=== PATIENT | female | born 1975 | race Caucasian/White ===

== ENCOUNTER → 2018-08-22 | Outpatient (CLI) | payer OTHER ==
[2018-08-22 13:20] LABS: BASO # 0.1 10^3/uL (0.0-0.2); BASO % 0.5 % (0.0-1.0); EOS % 0.3 % (0.0-3.0); HEMATOCRIT 40.8 % (36.0-47.0); HEMOGLOBIN 13.1 g/dl (12.0-15.5); LYMPH # 2.9 10^3/uL (1.5-4.5); LYMPH % 20.7 % (24.0-44.0); MEAN CORPUSCULAR HEMOGLOBIN 28.3 pg (27.0-33.0); MEAN CORPUSCULAR HGB CONC 32.1 g/dl (32.0-36.5); MEAN CORPUSCULAR VOLUME 88.1 fl (80.0-96.0); MONO # 0.6 10^3/uL (0.0-0.8); MONO % 4.2 % (0.0-5.0); NEUTROPHILS # 10.5 10^3/uL (1.8-7.7); NEUTROPHILS % 73.8 % (36.0-66.0); PLATELET COUNT, AUTOMATED 387 10^3/uL (150-450); RED BLOOD COUNT 4.63 10^6/uL (4.00-5.40); WHITE BLOOD COUNT 14.2 10^3/uL (4.0-10.0)
[2018-08-22 13:52] LABS: FREE T4 1.06 NG/DL (0.76-1.46); PROLACTIN 4.3 NG/ML; THYROID STIMULATING HORMONE 1.01 uIU/ML (0.358-3.740)
[2018-08-24 11:20] LABS: CA 125 5.6 U/ML (<30.2)
[2018-08-24 11:21] LABS: CA19-9 TUMOR MARKER,CARBOHYDRA 10.2 U/ML (<35.0)
== END ==
LOC: M SMT 11:48
PROVIDERS: ATTEND Nurse Practitioner Women's Health
DX: N92.0 Excessive and frequent menstruation with regular cycle (principal)

== ENCOUNTER → 2018-08-28 | Outpatient (CLI) | payer OTHER ==
--- NOTE | 2018-08-28 16:23 | REPMRS ---
Patient History The patient states she had a clinical breast exam in August 2018. Family history of ovarian cancer at age 55 in mother, colorectal cancer in paternal aunt, colorectal cancer at age 80 in maternal grandmother, endometrial cancer in maternal grandmother, colorectal cancer at age 50 in maternal aunt. Taking hormonal contraceptives for 22 years. Digital Mammo Screening Bilat: August 28, 2018 - Exam #: [id number] Bilateral CC and MLO view(s) were taken. Technologist: Janelle Sy, Technologist Prior study comparison: July 09, 2014, digital woman screen mammo, performed at [facility]. FINDINGS: There are scattered fibroglandular densities. There has been no change in the appearance of the mammogram from the prior studies. There is a mild amount of scattered fibroglandular density which is fairly symmetric. There is no interval development of dominant mass, architectural distortion, or clustered microcalcification suggestive of malignancy. 3-D tomosynthesis shows no additional findings. Assessment: BI-RADS/ACR category 1 mammogram. Negative Mammogram. Recommendation Routine screening mammogram of both breasts in 1 year (for women over age 40). This patient's Lifetime Breast Cancer RIsk is estimated at 13.7 %. This mammogram was interpreted with the aid of an FDA-approved computer-aided dectection system. Electronically Signed By: Uziel Velez MD 08/28/18 [id number]
--- NOTE | 2018-08-29 05:38 | REP ---
Clinical: Menometrorrhagia . Technique: Transabdominal pelvic ultrasound followed by transvaginal examination for better evaluation of the endometrium and adnexa with color Doppler evaluation of the ovaries. Comparison: 07/09/2014 Findings: Bladder is unremarkable and measures 10.4 x 13.5 x 6.6 cm . Enlarged anteverted myomatous uterus measures 10.5 x 6.4 x 7.2 cm. The endometrial complex measures 7.0 mm thickness. Left anterior fibroid measures 2.8 cm maximal diameter, midline submucosal fibroid with mass effect on the endometrial complex measures 1.7 cm maximal diameter, right anterior fibroid measures 2.1 cm maximal diameter, and right anterior fibroid measures 1.4 cm maximal diameter. The patient gives history of a right salpingo-oophorectomy and possible partial left salpingectomy. Left ovary measures 3.8 x 2.7 x 3.4 cm with 2.9 cm cyst. Left RI = 0.58. No evidence for torsion. Impression: 1. Enlarged heterogeneous myomatous uterus demonstrating mass effect on the endometrial complex. The myomatous changes may be slightly increased when compared to prior examination. 2. Findings to suggest prior right salpingo-oophorectomy and partial left salpingectomy. 3. Left ovary includes 2.9 cm cyst and no evidence for torsion. Electronically Signed by Devon Copeland MD 08/29/2018 05:29 A
== END ==
LOC: M RAD 13:25
PROVIDERS: ATTEND Nurse Practitioner Women's Health
DX: Z12.31 Encounter for screening mammogram for malignant neoplasm of breast (principal); N92.0 Excessive and frequent menstruation with regular cycle; N85.2 Hypertrophy of uterus; N83.202 Unspecified ovarian cyst, left side; Z79.3 Long term (current) use of hormonal contraceptives; Z80.41 Family history of malignant neoplasm of ovary

== ENCOUNTER 2018-11-01 09:47 | Day surgery (SDC) | payer OTHER ==
[~2018-11-01] VITALS: Ht 160 cm; Wt 108.5 kg
[2018-11-01] VITALS (10 sets, daily range): BP systolic 115–151; BP diastolic 69–85; O2SAT 95–98
[~2018-11-01 09:47] MED LIST: ALLE24TA7 PO; CVS2500C PO; D-101000 PO; DEBL1TAB PO; FLON1SPR; LIDOCAINE 2% INJ 100 MG/5 ML SDV (FOR ANES.) As Ordered ONE; LR 1,000 ML IV SCH; MIDAZOLAM INJ 2 MG/2 ML VIAL (J2250) As Ordered ONE; ONDANSETRON 4MG/2ML VIAL (J2405) As Ordered ONE; PROPOFOL 200 MG/20 ML VIAL As Ordered ONE; ROCURONIUM BROMIDE 50 MG/5 ML VIAL As Ordered ONE; VITA500T PO; dexameTHASONE 4 MG/ML 1ML VIAL (J1100) As Ordered ONE; fentaNYL 250 MCG/5 ML INJECTION (J3010) As Ordered ONE
[2018-11-01 10:16] LABS: HEMATOCRIT 39.8 % (36.0-47.0); MEAN CORPUSCULAR HEMOGLOBIN 28.6 pg (27.0-33.0); MEAN CORPUSCULAR HGB CONC 32.7 g/dl (32.0-36.5); MEAN CORPUSCULAR VOLUME 87.7 fl (80.0-96.0); PLATELET COUNT, AUTOMATED 356 10^3/uL (150-450); RED BLOOD COUNT 4.54 10^6/uL (4.00-5.40); WHITE BLOOD COUNT 8.8 10^3/uL (4.0-10.0)
[2018-11-01] MEDS ORDERED: KETOROLAC 60 MG/2 ML VIAL (J1885) As Ordered ONE (13:24)
[2018-11-01] MEDS ORDERED: ROCURONIUM BROMIDE 50 MG/5 ML VIAL As Ordered ONE (13:37)
[2018-11-01] MEDS ORDERED: MORPHINE 1MG/ML IN 0.9% NACL 100ML IV BAG As Ordered ONE (15:42)
[2018-11-01] MEDS ORDERED: NALBUPHINE HCL 10 MG/ML AMP (J2300) IV PRN (15:45)
[2018-11-01] MEDS ORDERED: diphenhydrAMINE INJ 50MG/ML VIAL (J1200) IV PRN (15:45)
[2018-11-01] MEDS ORDERED: ONDANSETRON 4MG/2ML VIAL (J2405) IV PRN (15:45)
[2018-11-01] MEDS ORDERED: EPIDURAL/PCA KEYS XX PRN (15:45)
[2018-11-01] MEDS ORDERED: MORPHINE 10 MG/ML 1ML VIAL (J2270) IV PRN (15:45)
[2018-11-01] MEDS ORDERED: NALOXONE INJ 0.4 MG/1 ML VIAL (J2310) IV PRN (15:45)
[2018-11-01] MEDS ORDERED: LR 1,000 ML IV SCH (15:45)
[2018-11-01] MEDS ORDERED: PERCOCET 5MG/325MG TAB PO PRN (15:45)
[2018-11-01] MEDS ORDERED: MORPHINE 1MG/ML IN 0.9% NACL 100ML IV BAG IV PRN (15:45)
[2018-11-01] MEDS ORDERED: fentaNYL 100 MCG/2 ML INJECTION (J3010) As Ordered ONE (16:04)
[2018-11-01] MEDS: fentaNYL 100 MCG/2 ML INJECTION (J3010) IV PRN ×4 (16:07→16:25)
[2018-11-01] MEDS: LR 1,000 ML IV SCH (16:15)
[2018-11-01] MEDS ORDERED: IBUPROFEN 600 MG TAB PO PRN (16:15)
[2018-11-02] VITALS: BP 157/84; O2SAT 96
[2018-11-02] MEDS: LR 1,000 ML IV SCH
[2018-11-02 04:00] VITALS: BP 132/78; O2SAT 97
[2018-11-02] MEDS ORDERED: NORCO, ANEXSIA 5/325MG TABLET (HYDROcodone/ACETAMINOPHEN) PO PRN (06:00)
[2018-11-02 07:59] LABS: HEMATOCRIT 34.2 % (36.0-47.0); HEMOGLOBIN 11.2 g/dl (12.0-15.5); MEAN CORPUSCULAR HGB CONC 32.7 g/dl (32.0-36.5); MEAN CORPUSCULAR VOLUME 88.6 fl (80.0-96.0); PLATELET COUNT, AUTOMATED 313 10^3/uL (150-450); RED BLOOD COUNT 3.86 10^6/uL (4.00-5.40); WHITE BLOOD COUNT 14.9 10^3/uL (4.0-10.0)
[2018-11-02 08:00] VITALS: BP 128/77
--- NOTE | 2018-11-02 08:47 | RO ---
DATE OF PROCEDURE: 11/01/2018 PREOPERATIVE DIAGNOSIS/INDICATION FOR SURGERY: Pain, bleeding, fibroids, adhesions. POSTOPERATIVE DIAGNOSIS: Pain, bleeding, fibroids, adhesions. PROCEDURE: Robotic assisted hysterectomy with left salpingo-oophorectomy. The patient had previous right salpingo-oophorectomy. She also had lysis of adhesions today. SURGEON: Dr. Tiffanie Beckford INNERSOLE MAKER: Alisia Marin ANESTHESIA: General endotracheal anesthesia. BRIEF DESCRIPTION OF PROCEDURE AND FINDINGS: Bhumika was brought to the operating room where sufficient general endotracheal anesthesia was induced. She was prepped, draped and positioned in the usual sterile fashion with the Wyman ability to backfill placed and the uterine manipulator placed after the uterus had been sounded to 12. We then turned our attention to the abdomen. A transverse semilunar incision was made below the umbilicus. Sharp and blunt dissection were continued through the subcutaneous tissues to the level of the rectus fascia, which was elevated with Brie clamps, transversely incised and secured in placed with #0 Vicryl retention sutures. Then, the peritoneum entered under direct visualization in an open laparoscopic technique. Th Bui cannula was then placed and CO2 insufflation then begun. After adequate CO2 insufflation, the camera was placed and the pelvic and abdominal cavity visualized. There were normal shiny peritoneal surfaces throughout. There was no excrescences, ascites nor exudate, but there were multiple adhesions. Some adhesions of just omentum at the umbilicus, which did not appear to have a risk of volvulus, so they were left alone especially since they sort of tie into the ligament to the liver. We also noted multiple adhesions of the bowel around the left adnexa and of the bowel to the back of the uterus and of the bladder to the anterior lower uterine segment. Two left-side, one right-side port were placed and the robot was docked with the patient in Trendelenburg. I moved to the console for the primary portion of the robotic port. Working from the robotic console I began the dissection of the adhesions, brought away the bowel from the uterus down from the left adnexa so that we could isolate the left infundibulopelvic ligament and this was carefully cauterized and transected using the LigaSure device. We carefully worked our way through the left side to the round ligament, which was also cauterized and transected. Then, we used cold scissors to carefully dissect the broad ligament on the left, which we had also used cold scissors on the adhesions. We then carefully dissected and brought down to isolate the uterine and carefully dissect across the lower anterior uterine segment. There were multiple adhesions there, so we backfilled the bladder to identify where the bladder was located more carefully and then carefully dissected through the adhesions using pressure upon the uterine manipulator as well as pressure on the adhesions. I created a bladder flap connecting to the dissection in the left broad ligament. We then turned our attention to the patient's right side. As expected, there is a small stump of right tube and no ovary on the right side. The stump of tube went with the uterus of course. We carefully dissected through the round ligament and the broad ligament carefully dissecting through multiple adhesions on this side to then join the broad ligament dissection anteriorly to the dissection we had already done and then cauterized the uterine vasculature on the right but not yet transecting it. We went back and cauterized the uterine vasculature on the left again and then carefully transected this and began the dissection of the colpotomy at the cuff with the uterine manipulator carefully dissecting around the manipulator cup working first anteriorly and then across the left and across the back. We were able to elevate this uterus enough to manipulate it for that and then across the vascular supply on the right. The uterus was then carefully and with some effort delivered through the vaginal cuff into the vagina. The vaginal cuff was then closed with running lock stitch of V-Loc suture. We did have a bleeding vessel on the right side, which we over sewed with a suture and had direct visualization and could see that we had good control of this arterial bleed, and we were able to continue and close the rest of the cuff being careful of course to get vaginal tissues with this closure. There was no evidence of injury to ureter, bowel or bladder. We did place some Surgicel over the cuff after irrigating and observing for a while. There was no active bleeding but she had, had some difficulty healing in the past, so we went ahead and placed the Surgicel and then ended the procedure by letting the CO2 escape, removing the instruments and removing her from Trendelenburg and closing the four abdominal wounds at the umbilicus. The larger one was closed at fascial level with a #0 Vicryl retention suture, #3-0 Vicryl in a subcuticular stitch was used at all four wounds at the skin layer and dry sterile dressings then applied. Estimated blood loss for the procedure was about 100 mL. Fluid replacement was crystalloid. Complications: None. Condition and Disposition: Bhumika tolerated the procedure well and was recovering in the recovery room in good condition
[2018-11-02] MEDS ORDERED: **UNRESOLVED NON-FORMULARY MED ORDER XX SCH (09:00)
[2018-11-02] MEDS ORDERED: FLUTICASONE PROP 0.05% NASAL SPRAY 16 GM (FLONASE) NARES SCH (09:00)
[2018-11-02] MEDS ORDERED: CYANOCOBALAMIN 500 MCG TAB PO SCH (09:00)
[2018-11-02] MEDS ORDERED: VITAMIN D 1,000 INTERNATIONAL UNITS TABLET PO SCH (09:00)
[2018-11-02] MEDS ORDERED: ASCORBIC ACID 500 MG TAB PO SCH (09:00)
[2018-11-02] MEDS ORDERED: NORC1TAB7 PO (09:00)
[2018-11-02] MEDS ORDERED: ADVI200T PO (09:00)
== END 2018-11-02 10:30 | disposition home or self-care (01) ==
LOC: M SDC 09:47 → M PED 17:15 → M SDC 11-02 10:30
PROVIDERS: ATTEND Obstetrics & Gynecology
DX: N93.9 Abnormal uterine and vaginal bleeding, unspecified (principal); D25.9 Leiomyoma of uterus, unspecified; N73.6 Female pelvic peritoneal adhesions (postinfective); N72 Inflammatory disease of cervix uteri; E66.9 Obesity, unspecified; Z68.41 Body mass index [BMI] 40.0-44.9, adult; Z98.51 Tubal ligation status

== ENCOUNTER → 2020-07-02 | Outpatient (CLI) | payer OTHER ==
[~2020-07-02] MED LIST changes: +ADVI200T PO; -LIDOCAINE 2% INJ 100 MG/5 ML SDV (FOR ANES.) As Ordered ONE; -LR 1,000 ML IV SCH; -MIDAZOLAM INJ 2 MG/2 ML VIAL (J2250) As Ordered ONE; +NORC1TAB7 PO; -ONDANSETRON 4MG/2ML VIAL (J2405) As Ordered ONE; -PROPOFOL 200 MG/20 ML VIAL As Ordered ONE; -ROCURONIUM BROMIDE 50 MG/5 ML VIAL As Ordered ONE; +VITA-243 PO; -VITA500T PO; -dexameTHASONE 4 MG/ML 1ML VIAL (J1100) As Ordered ONE; -fentaNYL 250 MCG/5 ML INJECTION (J3010) As Ordered ONE
--- NOTE | 2020-07-02 16:23 | REP ---
INDICATION: N63.21 LT BREAST LUMP. COMPARISON: 08/28/2018 and 07/09/2014. TECHNIQUE: MLO and CC views of bilateral breasts performed with tomosynthesis. Spot compression views are obtained of the upper-outer quadrant of left breast at the site of a palpable lump, which is marked on the skin. Focused left breast ultrasound performed in the upper-outer quadrant. FINDINGS: Mild scattered fibroglandular tissue is unchanged. No new mass is seen bilaterally. There are no suspicious clusters of microcalcifications. Real-time sonographic evaluation of left breast performed in the upper-outer quadrant at the site of the palpable lump. No cystic or solid nodule is seen. The Volpara volumetric breast density pattern is a. IMPRESSION: BIRADS/ACR category 1, negative. No mass or clustered microcalcifications by mammography. There is no mammographic or sonographic evidence of a mass at the site of the reported palpable abnormality upper-outer quadrant left breast. A negative mammogram and ultrasound should not deter biopsy if there is a clinically suspicious palpable mass present. Clinical correlation and follow-up recommended. This patient's Tyrer-Cuzick lifetime breast cancer risk assessment score is 11.6%. This mammogram was interpreted with the aid of an FDA-approved computer-aided detection system. The patient states she had a clinical breast exam in June 2020. The patient letter being requested is M2. RECOMMENDATION: Repeat screening mammography recommended 1 year (for women over 40). <Electronically signed by Tate Martin > 07/02/20 [id number]
== END ==
LOC: M WHC 14:55
PROVIDERS: ATTEND Obstetrics & Gynecology
DX: N63.21 Unspecified lump in the left breast, upper outer quadrant (principal)

== ENCOUNTER → 2024-08-09 | Outpatient (REF) | payer OTHER | LOC: M WUC 21:33 | PROVIDERS: ATTEND Physician Assistant | DX: J06.9 Acute upper respiratory infection, unspecified (principal) ==